=== PATIENT | female | born 1990 | race American Indian/Alaskan Native ===

== ENCOUNTER 2018-01-06 00:34 | Emergency (ER) | payer SELFPAY ==
[2018-01-06 01:38] VITALS: BP 121/69
--- NOTE | 2018-01-06 03:10 | XRay Report ---
FINAL REPORT EXAM: XR SPINE CERVICAL 2-3V HISTORY: Neck pain, status post fall. TECHNIQUE: Frontal, lateral, and 2 odontoid radiographs of the cervical spine were obtained. No prior studies are available for comparison. FINDINGS: The cervical vertebrae are visualized to the lower aspect of T1 on the lateral radiograph. The vertebral bodies demonstrate normal height and morphology. There is mild straightening of the normal cervical lordosis. This is nonspecific, but most commonly due to patient positioning and/or muscle spasm. There is no fracture or spondylolisthesis. The intervertebral disc heights are maintained. The prevertebral soft tissues are normal in appearance. IMPRESSION: Nonspecific cervical straightening, with no fracture or spondylolisthesis.
[2018-01-06] MEDS ORDERED: MOTRIN PO ONE (04:04)
--- NOTE | 2018-01-06 04:06 | Emergency Department Report ---
ED Neck Pain/Injury HPI - General Chief Complaint: Neck Pain/Injury Stated Complaint: BACK/NECK PAIN X1MTH Time Seen by Provider: 01/06/18 03:33 Mode of arrival: Ambulatory Limitations: No Limitations - History of Present Illness Initial Comments: pt is a 27 y/o aaf who presents of posterior neck pain s/p fall ground level last week , pt denies loc no laceration no bleeding no dizziness no lightheadedness state pain with movement there is no numbness no tingling no paresthesiaMD Complaint: neck injury Onset/Timin -: week(s) Place: home Radiation: right lateral Severity: moderate Severity scale (0 -10): 5 Quality: aching Consistency: intermittent Improves With: none Worsens With: movement of neck Context: fall Associated Symptoms: denies: headache, fever, numbness, tingling, weakness, vertigo, difficulty walking, swollen glands, difficulty swallowing, nausea, vomiting Treatments Prior to Arrival: none - Related Data Previous Rx's Medication Instructions Recorded Last Taken Type Acetaminophen/Codeine [Tylenol #3] 1 tab PO Q6H PRN #15 tab 08/20/15 Unknown Rx Azithromycin [Zithromax Z-ZOHREH] 250 mg PO DAILY #6 tablet 04/17/16 Unknown Rx Cyclobenzaprine [Flexeril] 10 mg PO TID PRN #15 tablet 04/17/16 Unknown Rx Ibuprofen [Motrin 800 MG tab] 800 mg PO Q8HR PRN #30 tablet 04/17/16 Unknown Rx Sulfamethoxazole/Trimethoprim 1 each PO BID #10 tablet 06/17/16 Unknown Rx [Bactrim DS TAB] traMADol [Ultram] 50 mg PO Q6HR PRN #14 tablet 06/17/16 Unknown Rx Cyclobenzaprine [Flexeril] 10 mg PO BID PRN #20 tablet 01/06/18 Unknown Rx Menthol/Camphor [[place] 1 applic TP TID PRN #1 tube 01/06/18 Unknown Rx Ointment] Naproxen 500 mg PO BID PRN #30 tablet 01/06/18 Unknown Rx Allergies Allergy/AdvReac Type Severity Reaction Status Date / Time Penicillins Allergy Itching Verified 08/20/15 05:00 ED Review of Systems ROS: Stated complaint: BACK/NECK PAIN X1MTH Other details as noted in HPI Constitutional: denies: chills, fever Eyes: denies: eye pain, eye discharge, vision change ENT: denies: ear pain, throat pain Respiratory: denies: cough, shortness of breath, wheezing Cardiovascular: denies: chest pain, palpitations Endocrine: no symptoms reported Gastrointestinal: denies: abdominal pain, nausea, diarrhea Genitourinary: denies: urgency, dysuria, discharge Musculoskeletal: myalgia. denies: back pain, joint swelling, arthralgia Skin: denies: rash, lesions Neurological: denies: headache, weakness, paresthesias Psychiatric: denies: anxiety, depression Hematological/Lymphatic: denies: easy bleeding, easy bruising ED Past Medical Hx - Past Medical History Previous Medical History?: No - Surgical History Past Surgical History?: No - Social History Smoking Status: Current Every Day Smoker Substance Use Type: None - Medications Home Medications: Home Medications Medication Instructions Recorded Confirmed Last Taken Type Acetaminophen/Codeine [Tylenol #3] 1 tab PO Q6H PRN #15 tab 08/20/15 Unknown Rx Azithromycin [Zithromax Z-ZOHREH] 250 mg PO DAILY #6 tablet 04/17/16 Unknown Rx Cyclobenzaprine [Flexeril] 10 mg PO TID PRN #15 tablet 04/17/16 Unknown Rx Ibuprofen [Motrin 800 MG tab] 800 mg PO Q8HR PRN #30 tablet 04/17/16 Unknown Rx Sulfamethoxazole/Trimethoprim 1 each PO BID #10 tablet 06/17/16 Unknown Rx [Bactrim DS TAB] traMADol [Ultram] 50 mg PO Q6HR PRN #14 tablet 06/17/16 Unknown Rx Cyclobenzaprine [Flexeril] 10 mg PO BID PRN #20 tablet 01/06/18 Unknown Rx Menthol/Camphor [[place] 1 applic TP TID PRN #1 tube 01/06/18 Unknown Rx Ointment] Naproxen 500 mg PO BID PRN #30 tablet 01/06/18 Unknown Rx ED Physical Exam - General Limitations: No Limitations General appearance: alert, in no apparent distress - Head Head exam: Present: atraumatic, normocephalic, normal inspection - Expanded Head Exam Expanded Head exam: Absent: abrasion, contusion, hematoma, racoon eyes, sánchez's sign, general tenderness, tenderness of temporal artery, CSF rhinorrhea, CSF otorrhea - Eye Eye exam: Present: normal appearance, PERRL, EOMI Pupils: Present: normal accommodation - ENT ENT exam: Present: mucous membranes moist. Absent: normal orophraynx, TM's normal bilaterally, normal external ear exam - Neck Neck exam: Present: normal inspection, tenderness (right posterior lateral neck muscle tenderness ), full ROM. Absent: lymphadenopathy, thyromegaly - Respiratory Respiratory exam: Present: normal lung sounds bilaterally. Absent: respiratory distress, wheezes, stridor, chest wall tenderness - Cardiovascular Cardiovascular Exam: Present: regular rate, normal rhythm, normal heart sounds. Absent: systolic murmur, diastolic murmur, rubs, gallop - GI/Abdominal GI/Abdominal exam: Present: soft, normal bowel sounds - Rectal Rectal exam: Present: deferred - Extremities Exam Extremities exam: Present: normal inspection, full ROM, normal capillary refill. Absent: tenderness, pedal edema, joint swelling, calf tenderness - Back Exam Back exam: Present: normal inspection, full ROM. Absent: tenderness, CVA tenderness (R), CVA tenderness (L), muscle spasm, paraspinal tenderness, vertebral tenderness, rash noted - Neurological Exam Neurological exam: Present: alert, oriented X3, CN II-XII intact, normal gait, reflexes normal - Psychiatric Psychiatric exam: Present: normal affect, normal mood - Skin Skin exam: Present: warm, dry, intact, normal color. Absent: rash ED Course Vital Signs 01/06/18 01/06/18 00:37 01:30 Temperature 98.2 F 98.2 F Pulse Rate 93 H 92 H Respiratory 19 16 Rate Blood Pressure 121/69 121/69 O2 Sat by Pulse 98 98 Oximetry ED Medical Decision Making - Radiology Data Radiology results: report reviewed, image reviewed no fracture no soft tissue abnormality - Medical Decision Making this is a neck strain , there is no numbness no tingling no swelling neck rom intact and unrestricted , plan muscle relaxants, nsaid moist heat therapy , follow up with pcp in 2-3 days pt verbalized agreement and understanding of same. Critical care attestation.: If time is entered above; I have spent that time in minutes in the direct care of this critically ill patient, excluding procedure time. ED Disposition Clinical Impression: Neck muscle strain Qualifiers: Encounter type: initial encounter Qualified Code(s): S16.1XXA - Strain of muscle, fascia and tendon at neck level, initial encounter Disposition: - TO HOME OR SELFCARE Is pt being admited?: No Does the pt Need Aspirin: No Condition: Good Instructions: Muscle Strain (ED), Cervical Spine Strain (ED), Bladder Neck Suspension (GEN) Prescriptions: Cyclobenzaprine [Flexeril] 10 mg PO BID PRN #20 tablet PRN Reason: Muscle Spasm Menthol/Camphor [[place] Ointment] 1 applic TP TID PRN #1 tube PRN Reason: Pain , Severe (7-10) Naproxen 500 mg PO BID PRN #30 tablet PRN Reason: Pain Referrals: [facility] [Outside] - 3-5 Days Forms: Work/School Release Form(ED) Time of Disposition: 04:14
== END 2018-01-06 04:22 | disposition home or self-care (01) ==
LOC: ED 00:34
DX: S16.1XXA Strain of muscle, fascia and tendon at neck level, initial encounter (principal); F17.200 Nicotine dependence, unspecified, uncomplicated; Z88.0 Allergy status to penicillin; W18.30XA Fall on same level, unspecified, initial encounter; Y93.89 Activity, other specified; Y99.8 Other external cause status; Y92.009 Unspecified place in unspecified non-institutional (private) residence as the place of occurrence of the external cause
CPT/HCPCS: 72040; 99283